=== PATIENT | female | born 1970 | race Caucasian/White ===

== ENCOUNTER → 2017-05-10 | Outpatient (CLI) | payer OTHER, BC | LOC: MC.RAD 14:00 | DX: Z12.31 Encounter for screening mammogram for malignant neoplasm of breast (principal) ==

== ENCOUNTER → 2019-05-23 | Outpatient (CLI) | payer BC | LOC: MC.RAD 10:45 | DX: Z12.31 Encounter for screening mammogram for malignant neoplasm of breast (principal) ==

== ENCOUNTER → 2021-05-28 | Outpatient (CLI) | payer BC | LOC: MC.RAD 09:15 | DX: Z12.31 Encounter for screening mammogram for malignant neoplasm of breast (principal); N64.89 Other specified disorders of breast ==

== ENCOUNTER → 2021-06-04 | Outpatient (CLI) | payer BC | LOC: MC.RAD 07:57 | DX: N64.89 Other specified disorders of breast (principal); R92.8 Other abnormal and inconclusive findings on diagnostic imaging of breast ==

== ENCOUNTER → 2022-04-01 | Outpatient (CLI) | payer BC, OTHER | LOC: COL.RAD 10:23 | DX: E04.1 Nontoxic single thyroid nodule (principal) ==

== ENCOUNTER → 2023-02-09 | Outpatient (CLI) | payer BC | LOC: MC.RAD 02-02 13:30 | DX: Z12.31 Encounter for screening mammogram for malignant neoplasm of breast (principal) ==

== ENCOUNTER → 2024-04-26 | Outpatient (CLI) | payer BC, OTHER ==
[~2024-04-26] MED LIST: CLARITIN 1010 MG/TAB PO; LEVBID0.375 MG PO; LUVOX100 MG PO; MULTI VITAMINS1 TAB PO; PRIL40 PO; PROBIOTIC BLEN1 EACH PO
== END ==
LOC: COL.RAD 15:21
DX: E04.2 Nontoxic multinodular goiter (principal)